=== PATIENT | male | born 1990 | race Two or more races ===

== ENCOUNTER 2022-09-23 10:31 | Emergency (ER) | payer OTHER ==
[~2022-09-23] VITALS: Ht 185.4 cm; Wt 90.7 kg
[2022-09-23] MEDS ORDERED: PEPCID AC20 MG (10:52)
[2022-09-23] MEDS ORDERED: PROTONIX20 MG PO (10:52)
== END 2022-09-23 12:12 | disposition home or self-care (01) ==
LOC: ER 10:31
DX: J06.9 Acute upper respiratory infection, unspecified (principal)

== ENCOUNTER 2023-12-01 10:53 | Emergency (ER) | payer OTHER ==
[~2023-12-01] VITALS: Ht 185.4 cm; Wt 90.7 kg
[~2023-12-01 10:53] MED LIST: PEPCID AC20 MG; PROTONIX20 MG PO
[2023-12-01] MEDS ORDERED: FAMOTIDINE/PF 20 MG/2 ML VIAL IV ONE (14:30)
[2023-12-01] MEDS ORDERED: GUAIFENESIN/DEXTROMETHORPHAN 10ML BLIST.PACK PO ONE (14:30)
[2023-12-01 15:04] LABS: HEMATOCRIT 43.7 % (39.0-48.0); HEMOGLOBIN 14.7 g/dL (13-16.00); MEAN CELL VOLUME 79.8 fL (80.0-100.00); MEAN CORPUSCULAR HEMOGLOBIN 26.8 pg (27.00-32.0); MEAN CORPUSCULAR HGB CONC 33.6 g/dl (32.0-36.0); PLATELET COUNT 177 K/uL (150-450); RED BLOOD COUNT 5.48 M/uL (4.00-6.00); RED CELL DISTRIBUTION WIDTH 13.7 % (11.5-14.5)
[2023-12-01] MEDS ORDERED: KETOROLAC TROMETHAMINE 60 MG VIAL IM ONE (16:45)
[2023-12-01] MEDS ORDERED: OSEL75CA PO (16:56)
[2023-12-01] MEDS ORDERED: TUSSIN DM LIQU118 ML PO (16:56)
== END 2023-12-01 17:05 ==
LOC: ER 10:54
PROVIDERS: Nurse Practitioner Family
DX: J10.1 Influenza due to other identified influenza virus with other respiratory manifestations (principal); Z20.822 Contact with and (suspected) exposure to COVID-19

== ENCOUNTER 2024-06-25 20:16 | Emergency (ER) | payer OTHER ==
[~2024-06-25] VITALS: Ht 185.4 cm; Wt 93.0 kg
[~2024-06-25 20:16] MED LIST changes: +OSEL75CA PO; +TUSSIN DM LIQU118 ML PO
[2024-06-25] MEDS ORDERED: GUAIFENESIN 200 MG/10 ML BLIST.PACK PO ONE ×2 (21:00→21:05)
[2024-06-25 21:43] LABS: BASO % 0.5 % (0.1-1.2); EOS # 0.18 (0.04-0.54); EOS % 1.4 % (0.7-7.0); HEMATOCRIT 39.4 % (40.1-51.0); HEMOGLOBIN 13.3 g/dL (13.7-17.5); LYMPH # 2.33 (1.18-3.74); LYMPH % 18.3 % (19.3-53.1); MEAN CORPUSCULAR HEMOGLOBIN 26.6 pg (25.6-32.2); MONO % 7.1 % (4.7-12.5); NEUT # 9.23 (1.56-6.13); NEUT % 72.4 % (34.0-71.1); PLATELET COUNT 226 K/uL (163-369); RED CELL DISTRIBUTION WIDTH 13.1 % (11.6-14.4)
[2024-06-25 22:06] LABS: COVID-19 AG NEGATIVE (NEGATIVE); INFLUENZA A AG NEGATIVE (NEGATIVE)
[2024-06-25] MEDS ORDERED: CEFTRIAXONE SODIUM 1,000 MG VIAL IM ONE (22:30)
[2024-06-25] MEDS ORDERED: CEFTRIAXONE SODIUM 1,000 MG VIAL ONE (22:40)
== END 2024-06-25 22:51 | disposition home or self-care (01) ==
LOC: ER 21:20
PROVIDERS: General Practice
DX: J02.9 Acute pharyngitis, unspecified (principal); R05.8 Other specified cough; R05.9 Cough, unspecified; Z20.822 Contact with and (suspected) exposure to COVID-19